=== PATIENT | male | born 1985 | race Caucasian/White ===

== ENCOUNTER 2021-02-27 15:51 | Emergency (ER) | payer SELFPAY ==
--- NOTE | 2021-02-27 16:10 | USR_ITS ---
PROCEDURE INFORMATION: Exam: US Duplex Right Lower Extremity Veins, Limited Exam date and time: 02/27/2021 4:10 PM Age: 35 years old Clinical indication: Swelling (edema) of limb and other: Redness; Lower extremity, right; Additional info: Redness/swelling TECHNIQUE: Imaging protocol: Real-time Duplex ultrasound of the Right Lower Extremity with 2-D amos scale, color Doppler flow and spectral waveform analysis with image documentation. Limited exam was focused on the right lower extremity veins. COMPARISON: No relevant prior studies available. FINDINGS: Right deep veins: Unremarkable. The common femoral, femoral, proximal profunda femoral and popliteal veins are patent without thrombus. Normal Doppler waveforms. Normal compressibility and/or augmentation response. Right superficial veins: Unremarkable. Saphenofemoral junction is patent without thrombus. Soft tissues: Unremarkable. Lymph nodes: There are lymph nodes with normal fatty radha in the right inguinal region. US/[place] [id number] IMPRESSION: No evidence for deep venous thrombosis. Radiation Dose CTDIVOL = (mGy): DLP = (mGy-cm)
[2021-02-27 16:24] VITALS: BP 189/116; PULSE 87; RESP 16; TEMP 36.7; O2SAT 96; BMI 46.2
[2021-02-27 18:13] LABS: Glucose Point of Care 117 mg/dL (70-110)
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
[2021-02-27] MEDS: clindamycin 150 mg Capsule 300 MG PO (18:22)
[2021-02-27 18:26] VITALS: BP 134/85; PULSE 82; RESP 18; O2SAT 98
== END 2021-02-27 18:24 | disposition home or self-care (01) ==
PROVIDERS: Emergency Provider Nurse Practitioner Family
DX: A48.8 Other specified bacterial diseases (principal)
CPT/HCPCS: 36416; 82962; 93971; 99283

== ENCOUNTER 2021-03-02 18:18 | Emergency (ER) | payer SELFPAY ==
[2021-03-02 18:47] VITALS: BP 143/80; PULSE 101; RESP 18; TEMP 37; O2SAT 98; BMI 46.2
[2021-03-02 19:06] LABS: Basophils # 0.1 10^3/uL (0.0-0.1); Basophils % 0.3 %; Eosinophils # 0.3 10^3/uL (0.0-0.8); Eosinophils % 1.9 %; Hematocrit 38.7 % (42.0-52.0); Hemoglobin 13.2 g/dL (11.7-16.6); Lymphocytes # 2.6 10^3/uL (0.8-4.8); Lymphocytes % 17.9 %; Mean Corpuscular HGB Conc 34.1 g/dL (30.0-36.0); Mean Corpuscular Hemoglobin 28.3 pg (28.0-34.0); Mean Platelet Volume 9.7 fL (7.4-10.4); Monocytes # 0.4 10^3/uL (0.2-0.9); Monocytes % 2.9 %; Neutrophils # 10.58 10^3/uL (1.8-7.7); Neutrophils % 72.5 %; Nucleated Red Blood Cells % 0 %; Platelet Count 436 10^3/cmm (130-400); Red Blood Count 4.66 10^6/uL (4.1-5.3); Red Cell Distribution Width 12.5 % (12.1-15.1); White Blood Count 14.6 10^3/uL (4.0-10.0)
[2021-03-02 19:29] LABS: Alanine Aminotransferase 25 U/L (0-41); Albumin Level 3.7 g/dL (3.5-5.2); Alkaline Phosphatase 83 IU/L (40-130); Anion Gap 16.7 (5-19); Aspartate Amino Transferase 18 U/L (0-40); Blood Urea Nitrogen 14 mg/dL (6-20); Calcium 8.6 mg/dL (8.5-10.5); Carbon Dioxide 22 mmol/L (22-29); Chloride 106 mmol/L (98-107); Globulin 3.1 g/dL (1.3-4.6); Glomerular Filtration Rate 111.3 mL/min (90-130); Glucose 155 mg/dL (65-115); Osmolality Calculated 296 mOsm/kg (285-295); Potassium 3.7 mmol/L (3.5-5.1); Sodium 141 mmol/L (136-145); Total Bilirubin 0.3 mg/dL (0.15-1.2); Total Protein 6.8 g/dL (6.6-8.7)
[2021-03-02 21:05] LABS: Lactic Sepsis W/Reflex 1.2 mmol/L (0.5-2.2)
[2021-03-02 21:58] VITALS: BP 185/102; PULSE 103; RESP 23; O2SAT 97
--- NOTE | 2021-03-02 21:58 | ED_ITS ---
HPI - Extremity Problem General: Chief complaint: Extremity Problem,Nontraumatic Stated complaint: Rt Leg Swollen\Blisters Time Seen by Provider: 03/02/21 21:58 History of Present Illness: HPI Narrative: 35-year-old male patient comes in with increasing redness and tenderness to the right lower leg. Patient was evaluated 3 days ago for a DVT and started on some clindamycin for possible cellulitis. Ultrasound at that time was negative for DVT. Patient reported that he was unable to get the clindamycin filled at but had continue taking doxycycline. Patient appears well. Patient appears in mild pain. Patient has continued to work on the extremity. Review of Systems General: Reports: 10 or more systems reviewed and unremarkable except in HPI and below Skin/Breast: Reports: erythema Physical Exam Const: COMMON NORMALS: no acute distress and patient oriented x3 GENERAL APPEARANCE: cooperative HENMT: COMMON NORMALS: normocephalic and Normal external nose present HEAD & SCALP: normal to inspection and normocephalic NOSE: Normal external nose present MOUTH: Normal oral and palatal mucosa present Eye: GENERAL EYE: appearance normal, both eyes and all related structures Neck/C-Spine: COMMON NORMALS: full ROM Chest: COMMONS NORMALS: normal inspection of the chest Resp: COMMON NORMALS: normal respiratory effort EFFORT & INSPECTION: Yes able to speak in complete sentences Cardio: COMMON NORMALS: regular rate and regular rhythm RATE: regular rate RHYTHM: regular rhythm GI: COMMON NORMALS: non-tender Extremity: NARRATIVE EXTREMITY EXAM: Redness and swelling noted to the anterior aspect of the right lower leg. Distal pulses are intact. No calf or popliteal area pain is noted. Neuro: COMMON NORMALS: patient oriented x3 and moves all extremities Psych: COMMON NORMALS: mental status grossly normal and cooperative Skin: COMMON NORMALS: no rashes or lesions noted GENERAL SKIN EXAM: no rashes or lesions noted Course Vital Signs: Vital signs: Vital Signs Temperature 98.6 F 03/02/21 18:47 Pulse Rate 96 03/02/21 22:00 Respiratory Rate 23 H 03/02/21 21:58 Blood Pressure 185/102 03/02/21 21:58 Pulse Oximetry 97 03/02/21 21:58 MDM - Extremity (Nontraumatic) MDM Narrative: Medical decision making narrative: 35-year-old male comes in with increasing redness and tenderness to the right lower leg. On exam patient appears well. Patient appears no acute distress. Patient does have redness and induration to the right lower leg. No calf pain or popliteal area pain is noted on palpation. Distal pulses are intact and sensation is normal. Laboratory values were unremarkable. Vital signs are normal. Differential diagnosis includes but not limited to cellulitis, stasis dermatitis, lymphedema. Suspect the patient has a cellulitis. Prior ultrasound indicated no DVT. Patient was unable to get clindamycin and doxycycline most likely was not covered with staph or the strep very well. We will go ahead and give patient a dose of vancomycin IV in the ER and 1 dose of clindamycin IV in the ER. Patient will then continue with p.o. clindamycin 454 times a day on outpatient basis. Recommended patient rest and elevate leg and follow-up with primary care in 3 days. Patient should return to the ER for high fever earlier than 100.4 or new concerns. Lab Data: Labs: Lab Results 03/02/21 03/02/21 03/02/21 18:58 18:58 20:44 WBC 14.6 10^3/uL H 10 ^3/uL (4.0-10.0) RBC 4.66 10^6/uL 10^6 /uL (4.1-5.3) Hgb 13.2 g/dL g/dL (11.7-16.6) Hct 38.7 % L % (42.0-52.0) MCV 83.0 fl fl (80-94) MCH 28.3 pg pg (28.0-34.0) MCHC 34.1 g/dL g/dL (30.0-36.0) RDW 12.5 % % (12.1-15.1) Plt Count 436 10^3/cmm H 10 ^3/cmm (130-400) MPV 9.7 fL fL (7.4-10.4) Neut % (Auto) 72.5 % % Lymph % (Auto) 17.9 % % [place] % (Auto) 2.9 % % Eos % (Auto) 1.9 % % Baso % (Auto) 0.3 % % Neut # (Auto) 10.58 10^3/uL H 1 0^3/uL (1.8-7.7) Lymph # (Auto) 2.6 10^3/uL 10^3/ uL (0.8-4.8) [place] # (Auto) 0.4 10^3/uL 10^3/ uL (0.2-0.9) Eos # (Auto) 0.3 10^3/uL 10^3/ uL (0.0-0.8) Baso # (Auto) 0.1 10^3/uL 10^3/ uL (0.0-0.1) Nucleated RBC % (a uto) 0 % % Nucleated RBCs # 0.0 /100WBC /100W BC Sodium 141 mmol/L mmol/L (136-145) Potassium 3.7 mmol/L mmol/L (3.5-5.1) Chloride 106 mmol/L mmol/L (98-107) Carbon Dioxide 22 mmol/L mmol/L (22-29) Anion Gap 16.7 (5-19) BUN 14 mg/dL mg/dL (6-20) Creatinine 0.8 mg/dL mg/dL (0.7-1.2) GFR Calculation 111.3 mL/min mL/m in (90-130) Glucose 155 mg/dL H mg/dL (65-115) Calculated Osmolal ity 296 mOsm/kg H mOs m/kg (285-295) Lactic Acid 1.2 mmol/L mmol/L (0.5-2.2) Calcium 8.6 mg/dL mg/dL (8.5-10.5) Total Bilirubin 0.3 mg/dL mg/dL (0.15-1.2) AST 18 U/L U/L (0-40) ALT 25 U/L U/L (0-41) Alkaline Phosphata se 83 IU/L IU/L (40-130) Total Protein 6.8 g/dL g/dL (6.6-8.7) Albumin 3.7 g/dL g/dL (3.5-5.2) Globulin 3.1 g/dL g/dL (1.3-4.6) Discharge Plan Discharge Patient Disposition: Home Clinical Impression: Cellulitis of leg, right Condition: Stable Prescriptions: New clindamycin HCl 150 mg capsule 450 mg PO Q6H 7 Days Qty: 84 RF: 0 Discontinued doxycycline hyclate 100 mg tablet 100 mg PO BID 7 Days Qty: 14 RF: 0 ciprofloxacin HCl [Cipro] 250 mg tablet 250 mg PO BID 7 Days Qty: 14 RF: 0 clindamycin HCl 300 mg capsule 300 mg PO Q8H 7 Days Qty: 21 RF: 0 Discharge Orders: Discharge ED (Routine); Ordered 03/02/21 Ordered By: Alfonzo Nolasco Patient Instructions: Cellulitis (ED), Opioid Safety Activity Restrictions/Additional Instructions: Stop doxycycline and other antibiotics. Take clindamycin 450 mg 4 times a day for the next 7 days. I would expect improvement of symptoms to the leg within the next 2 days. Drink plenty of water with medication. Stay off the extremity as much as possible. Follow-up with primary care in 3 days for recheck. Return to the ER for new concerns or worsening symptoms. Stand Alone Forms: Work/School Release Coding Level of Care Code ED [employer] Forms Developer for Ezra Fwjanett Exam Comprehensive
[2021-03-02 22:00] VITALS: PULSE 96
[2021-03-02] MEDS: vancomycin 1,000 MG in sodium chloride 0.9% 250 ML 250 MG IV (22:15)
[2021-03-02] MEDS: clindamycin 900 MG/50 ML PREMIX 100 MG IV (23:06)
[2021-03-02 23:07] VITALS: BP 162/76; O2SAT 96
--- NOTE | 2021-03-08 12:54 | DCPLANNER ---
manager order had message to speak with patient about getting established with a primary care physician. manager order called phone number [phone], unable to speak with patient at this time, and unable to leave a voicemail for patient due to no voicemail box set up.
== END 2021-03-02 23:55 | disposition home or self-care (01) ==
PROVIDERS: Emergency Medicine; Emergency Provider Nurse Practitioner Family
DX: L03.115 Cellulitis of right lower limb (principal)
CPT/HCPCS: 36415; 80053; 83605; 85025; 87040; 96365; 96367; 99284; J3370; J3490; J7050

== ENCOUNTER 2021-09-20 21:40 | Emergency (ER) | payer OTHER, SELFPAY ==
--- NOTE | 2021-09-20 21:53 | ECG_ITS ---
[facility] Test Date: 2021-09-20 Pat Name: Quinton Peraza Department: Room: Gender: Male Form Raiser: : 1985 Requested By: Stefano Castillo Order Number: [id number] [place] MD: Jazmín Lowery M.D. Measurements Intervals [place] Rate: 89 P: 63 TX: 136 QRS: 22 QRSD: 100 T: 64 QT: 335 QTc: 409 Interpretive Statements SINUS RHYTHM No previous ECG available for comparison Electronically Signed On 09-21-2021 17:06:04 CDT by Jazmín Lowery M.D. [email or web address]
[2021-09-20 22:08] VITALS: BP 164/74; PULSE 88; RESP 16; TEMP 37.3; O2SAT 94
--- NOTE | 2021-09-21 00:10 | XRR_ITS ---
PROCEDURE INFORMATION: Exam: XR Chest Exam date and time: 09/21/2021 12:36 AM Age: 36 years old Clinical indication: Shortness of breath; Patient HX: PT says he is struggling to take in deep breaths x2 days; Additional info: SOB TECHNIQUE: Imaging protocol: Radiologic exam of the chest. Views: 1 view. COMPARISON: No relevant prior studies available. FINDINGS: Lungs: Unremarkable. No consolidation. Pleural spaces: Unremarkable. No pleural effusion. No pneumothorax. Heart/Mediastinum: Unremarkable. No cardiomegaly. Bones/joints: Minimal dextroscoliosis. XR/XR chest 1V portable [id number] IMPRESSION: No acute findings.
--- NOTE | 2021-09-21 00:26 | W.ED.SOB ---
HPI - SOB/Dyspnea General: Chief Complaint: Shortness of Breath/Dyspnea Stated Complaint: Sortness of Breath Time Seen by Provider: 09/21/21 00:25 History of Present Illness: HPI Narrative: A 36-year-old male patient comes in today with some wheezing and cough and shortness of breath starting this morning. Patient took a home COVID test and it was negative. Patient does have a history of asthma and his early youth. Patient does smoke and vape. Patient denies any chronic medical problems. Review of Systems General: Reports: 10 or more systems reviewed and unremarkable except in HPI and below Resp: Reports: dyspnea, non-productive cough and wheezing Physical Exam Const: COMMON NORMALS: alert HENMT: THROAT: posterior oropharynx normal Resp: EFFORT & INSPECTION: Yes able to speak in complete sentences AUSCULTATION: wheezes Cardio: COMMON NORMALS: regular rate and regular rhythm RATE: regular rate RHYTHM: regular rhythm Extremity: COMMON NORMALS: no pedal edema Neuro: SENSORIUM/ORIENTATION: Yes alert Course Vital Signs: Vital signs: Vital Signs Temperature 99.1 F 09/20/21 22:08 Pulse Rate 88 09/20/21 22:08 Respiratory Rate 16 09/20/21 22:08 Blood Pressure 164/74 09/20/21 22:08 Pulse Oximetry 94 09/20/21 22:08 MDM - SOB/Dyspnea Medical Decision Making 36-year-old male patient comes in today with some shortness of breath and wheezing. Patient does have a history of asthma in his youth. Patient does smoke and use a vape. On exam patient appears in no acute distress. Patient does have some scattered inspiratory and expiratory wheezes. Good air movement throughout. Vital signs are normal. Differential diagnosis includes pneumonia, bronchitis, exacerbation of asthma. EKG was sinus rhythm. Chest x-ray had some atelectasis versus beginning infiltrate in the left lower lobe. Recommend patient take azithromycin 500 mg daily for 3 days, prednisone 60 mg daily for 5 days, and albuterol 2 inhalations every 4 hours as needed for wheezing or shortness of breath. Encourage patient to stop smoking. Recommend repeat x-ray in 1 week for recheck. Patient reported understanding agreed to plan. EKG Data EKG 1: EKG Interpretation Date: 09/21/21 EKG interpretation time: 00:31 Prior EKG tracings: not available for review Interpretation: EKG showed a normal sinus rhythm with a regular rate at [address] elevation or ectopy was noted. No prior exam was available for comparison. This EKG was performed while patient was in the waiting area. Discharge Plan Discharge Patient Disposition: Home Clinical Impression: Bronchitis, Atelectasis of left lung Mild reactive airways disease Qualifiers: Asthma persistence: intermittent Asthma complication type: with acute exacerbation Qualified Code(s): J45.21 - Mild intermittent asthma with (acute) exacerbation Condition: Stable Prescriptions: New prednisone 20 mg tablet 60 mg PO DAILY 5 Days Qty: 15 0RF Rx Instructions: take with food on stomach azithromycin 500 mg tablet 500 mg PO DAILY 3 Days Qty: 3 0RF albuterol sulfate 90 mcg/actuation HFA aerosol inhaler 2 inh inhalation Q4H PRN (Reason: shortness of breath or wheezing) Qty: 8.5 0RF Discharge Orders: Discharge ED (Routine); Ordered 09/21/21 Ordered By: Alfonzo Nolasco Discharge Diet: Usual diet Discharge Activity: Increase activity as tolerated Patient Instructions: Reactive Airways Disease (ED) Activity Restrictions/Additional Instructions: I strongly recommend that you stop smoking/vaping. Take medications as directed. Drink plenty of water with medication. Use albuterol inhaler 2 puffs every 4 hours as needed for shortness of breath or wheezing. Follow-up with primary care in 3 days for recheck. Return to ER for new concerns. Stand Alone Forms: Work/School Release Coding Level of Care Code ED Supervisor Customer Complaint Service for Ezra Fwd Exam Detailed
[2021-09-21] MEDS: azithromycin 250 mg Tablet 500 MG PO (00:42)
[2021-09-21] MEDS: predniSONE 20 mg Tablet 60 MG PO (00:42)
[2021-09-21] MEDS: albuterol 8 gm MDI 2 PUFF INHALATION (01:00)
[2021-09-21 01:01] VITALS: PULSE 86; RESP 16; O2SAT 96
[2021-09-21 01:16] VITALS: BP 155/79; PULSE 85; RESP 18; O2SAT 95
== END 2021-09-21 01:17 | disposition home or self-care (01) ==
PROVIDERS: Emergency Provider Nurse Practitioner Family
DX: J45.21 Mild intermittent asthma with (acute) exacerbation (principal); J40 Bronchitis, not specified as acute or chronic; J98.11 Atelectasis
CPT/HCPCS: 71045; 93005; 94640; 99283; J3535; J7512; Q0144